=== PATIENT | male | born 1965 | race Caucasian/White ===

== ENCOUNTER → 2017-06-11 | Outpatient (CLI) | payer BC ==
--- NOTE | 2017-06-11 12:36 | REP ---
Right lower extremity Duplex Doppler venous ultrasound: Real time compression and duplex Doppler interrogation of the right lower extremity deep venous system is performed. The right common femoral, superficial femoral and popliteal veins are fully compressible with transducer pressure and demonstrate normal spontaneous and phasic flow, without evidence of deep venous thrombosis. Impression: No evidence of deep venous thrombosis of the right lower extremity femoral popliteal venous system. Signed by Chay Velez MD 06/11/2017 12:06 P
== END ==
LOC: M RAD 11:11
PROVIDERS: ATTEND Physician Assistant
DX: M79.604 Pain in right leg (principal)

== ENCOUNTER → 2017-06-11 | Outpatient (CLI) | payer BC ==
[2017-06-11 13:09] LABS: BASO # 0.1 10^3/uL (0.0-0.2); BASO % 0.4 % (0.0-1.0); EOS # 0.4 10^3/uL (0.0-0.50); EOS % 2.1 % (0.0-3.0); IMMATURE GRANULOCYTE % 0.4 % (0-0); LYMPH # 1.5 10^3/uL (1.5-4.5); LYMPH % 9.2 % (24.0-44.0); MEAN CORPUSCULAR HEMOGLOBIN 31.3 pg (27.0-33.0); MEAN CORPUSCULAR HGB CONC 33.7 g/dl (32.0-36.5); MEAN CORPUSCULAR VOLUME 92.9 fl (80.0-96.0); MONO # 1.2 10^3/uL (0.0-0.8); MONO % 7.3 % (0.0-5.0); NEUTROPHILS # 13.4 10^3/uL (1.8-7.7); NEUTROPHILS % 80.6 % (36.0-66.0); PLATELET COUNT, AUTOMATED 319 10^3/uL (150-450); RED CELL DISTRIBUTION WIDTH 13.2 % (11.5-14.5); WHITE BLOOD COUNT 16.6 10^3/uL (4.0-10.0)
== END ==
LOC: M WUC 09:13
PROVIDERS: ATTEND Physician Assistant
DX: L02.415 Cutaneous abscess of right lower limb (principal)

== ENCOUNTER → 2017-06-15 | Outpatient (CLI) | payer BC ==
[2017-06-15 19:04] LABS: BASO # 0.1 10^3/uL (0.0-0.2); BASO % 0.6 % (0.0-1.0); EOS # 0.2 10^3/uL (0.0-0.50); EOS % 2.4 % (0.0-3.0); IMMATURE GRANULOCYTE % 0.2 % (0-0); LYMPH % 22.5 % (24.0-44.0); MEAN CORPUSCULAR HEMOGLOBIN 31.3 pg (27.0-33.0); MEAN CORPUSCULAR HGB CONC 33.8 g/dl (32.0-36.5); MEAN CORPUSCULAR VOLUME 92.6 fl (80.0-96.0); MONO # 0.8 10^3/uL (0.0-0.8); MONO % 8.6 % (0.0-5.0); NEUTROPHILS # 5.9 10^3/uL (1.8-7.7); NEUTROPHILS % 65.7 % (36.0-66.0); PLATELET COUNT, AUTOMATED 329 10^3/uL (150-450); RED CELL DISTRIBUTION WIDTH 12.9 % (11.5-14.5); WHITE BLOOD COUNT 8.9 10^3/uL (4.0-10.0)
== END ==
LOC: M WUC 17:11
PROVIDERS: ATTEND Physician Assistant
DX: L02.415 Cutaneous abscess of right lower limb (principal)

== ENCOUNTER → 2017-09-01 | Outpatient (REF) | payer BC ==
[2017-09-01 13:43] LABS: BASO % 0.4 % (0.0-1.0); EOS # 0.1 10^3/uL (0.0-0.50); EOS % 1.8 % (0.0-3.0); HEMATOCRIT 44.2 % (42.0-52.0); HEMOGLOBIN 14.8 g/dl (14.0-18.0); IMMATURE GRANULOCYTE % 0.3 % (0-0); LYMPH # 1.6 10^3/uL (1.5-4.5); LYMPH % 20.9 % (24.0-44.0); MEAN CORPUSCULAR HGB CONC 33.5 g/dl (32.0-36.5); MEAN CORPUSCULAR VOLUME 92.7 fl (80.0-96.0); MONO # 0.6 10^3/uL (0.0-0.8); MONO % 8.2 % (0.0-5.0); NEUTROPHILS # 5.3 10^3/uL (1.8-7.7); NEUTROPHILS % 68.4 % (36.0-66.0); PLATELET COUNT, AUTOMATED 254 10^3/uL (150-450); RED BLOOD COUNT 4.77 10^6/uL (4.30-6.10); RED CELL DISTRIBUTION WIDTH 13.2 % (11.5-14.5); WHITE BLOOD COUNT 7.8 10^3/uL (4.0-10.0)
[2017-09-01 13:51] LABS: ALBUMIN 3.9 GM/DL (3.2-5.2); ALBUMIN/GLOBULIN RATIO 1.05 (1.00-1.93); ALKALINE PHOSPHATASE 86 U/L (45-117); ALT/SGPT 45 U/L (12-78); ANION GAP 4 MEQ/L (8-16); AST/SGOT 36 U/L (7-37); BILIRUBIN,TOTAL 0.3 MG/DL (0.2-1.0); BLOOD UREA NITROGEN 13 MG/DL (7-18); CALCIUM LEVEL 8.8 MG/DL (8.5-10.1); CARBON DIOXIDE LEVEL 30 MEQ/L (21-32); CHLORIDE LEVEL 104 MEQ/L (98-107); CHOLESTEROL LEVEL 120 MG/DL (<200); CHOLESTEROL RISK RATIO 4.615 (<5); CREATININE FOR GFR 0.78 MG/DL (0.70-1.30); GLOMERULAR FILTRATION RATE > 60.0 (>56); GLUCOSE, FASTING 110 MG/DL (70-100); HDL CHOLESTEROL 26 MG/DL (>40); LDL CHOLESTEROL 83.4 MG/DL (<100); MAGNESIUM LEVEL 1.7 MG/DL (1.8-2.4); NON-HDL-C 94 MG/DL; POTASSIUM SERUM 3.7 MEQ/L (3.5-5.1); SODIUM LEVEL 138 MEQ/L (136-145); TOTAL PROTEIN 7.6 GM/DL (6.4-8.2); TRIGLYCERIDES LEVEL 53 MG/DL (<150)
== END ==
LOC: M LABDRAW1 11:01
DX: K21.9 Gastro-esophageal reflux disease without esophagitis (principal)
CPT/HCPCS: 83735

== ENCOUNTER → 2018-03-04 | Outpatient (REF) | payer BC | LOC: M WUC 09:26 | DX: L02.414 Cutaneous abscess of left upper limb (principal) | CPT/HCPCS: 87186 ==

== ENCOUNTER 2018-04-07 11:11 | Day surgery (SDC) | payer BC ==
[~2018-04-07 11:11] MED LIST: LIDOCAINE 2% INJ 100 MG/5 ML SDV (FOR ANES.) As Ordered; PROPOFOL 200 MG/20 ML VIAL As Ordered; fentaNYL 100 MCG/2 ML INJECTION (J3010) As Ordered
[2018-04-07] MEDS ORDERED: NS 1,000 ML IV (11:30)
[2018-04-07] MEDS ORDERED: PROPOFOL 200 MG/20 ML VIAL As Ordered (12:30)
== END 2018-04-07 13:05 | disposition home or self-care (01) ==
LOC: M OPP 11:11
DX: Z12.11 Encounter for screening for malignant neoplasm of colon (principal); Z80.0 Family history of malignant neoplasm of digestive organs; Z86.010 Personal history of colon polyps; K64.0 First degree hemorrhoids; K57.30 Diverticulosis of large intestine without perforation or abscess without bleeding; K90.0 Celiac disease; K57.32 Diverticulitis of large intestine without perforation or abscess without bleeding; Z86.718 Personal history of other venous thrombosis and embolism; Z86.14 Personal history of Methicillin resistant Staphylococcus aureus infection; M54.89 Other dorsalgia; G47.30 Sleep apnea, unspecified; R06.83 Snoring; F17.210 Nicotine dependence, cigarettes, uncomplicated; Z79.899 Other long term (current) drug therapy
CPT/HCPCS: G0105

== ENCOUNTER 2020-02-15 09:48 | Inpatient (IN) | payer BC ==
[~2020-02-15] VITALS: Ht 172.7 cm; Wt 71.4 kg
[~2020-02-15 09:48] MED LIST changes: +CIAL5TAB PO; +CLAR10CA3 PO; +GABA600T4 PO; +IBUP1TAB7 PO; -LIDOCAINE 2% INJ 100 MG/5 ML SDV (FOR ANES.) As Ordered; +MULTCAP PO; -PROPOFOL 200 MG/20 ML VIAL As Ordered; +TRAM50TA2 PO; -fentaNYL 100 MCG/2 ML INJECTION (J3010) As Ordered
[2020-02-15] MEDS ORDERED: NS 1,000 ML IV ONE ×2 (11:15→13:15)
[2020-02-15] MEDS ORDERED: KETOROLAC 30 MG/ML 1ML VIAL IV ONE (11:15)
--- NOTE | 2020-02-15 11:22 | REP ---
Clinical: Right groin pain. Technique: Real time street scale examination using linear high frequency transducer. Findings: Bilateral fat containing inguinal hernias are identified which are not reducible with transducer pressure. Right inguinal hernia defect measures up to 2.6 cm diameter on Valsalva and lateral to the external inguinal ring is a 2.5 x 1.8 x 2.0 cm well circumscribed cystic structure of uncertain etiology or significance. Left inguinal hernia defect measures 2.1 cm diameter on Valsalva. Impression: Small to moderate bilateral fat containing inguinal hernias. 2.5 cm cystic lesion lateral to the right inguinal canal at the groin. Electronically Signed by Jonathan Dixon MD 02/15/2020 11:14 A
[2020-02-15 11:29] LABS: BASO % 0.2 % (0.0-1.0); EOS % 0.2 % (0.0-3.0); HEMATOCRIT 41.6 % (42.0-52.0); HEMOGLOBIN 14.1 g/dl (13.5-17.5); LYMPH # 1.6 10^3/uL (1.5-5.0); LYMPH % 9.8 % (24.0-44.0); MEAN CORPUSCULAR HEMOGLOBIN 31.7 pg (27.0-33.0); MEAN CORPUSCULAR HGB CONC 33.9 g/dl (32.0-36.5); MEAN CORPUSCULAR VOLUME 93.5 fl (80.0-96.0); MONO # 1.3 10^3/uL (0.0-0.8); MONO % 7.8 % (0.0-5.0); NEUTROPHILS # 13.3 10^3/uL (1.5-8.5); NEUTROPHILS % 81.6 % (36.0-66.0); PLATELET COUNT, AUTOMATED 268 10^3/uL (150-450); RED BLOOD COUNT 4.45 10^6/uL (4.30-6.10); WHITE BLOOD COUNT 16.3 10^3/uL (4.0-10.0)
[2020-02-15] MEDS ORDERED: ISOVUE-370 76% 100ML VIAL As Ordered ONE (11:31)
[2020-02-15 12:02] LABS: ALBUMIN 3.2 GM/DL (3.2-5.2); BILIRUBIN,DIRECT 0.2 MG/DL (0.0-0.2); BILIRUBIN,TOTAL 0.5 MG/DL (0.2-1.0); TOTAL PROTEIN 7.2 GM/DL (6.4-8.2)
[2020-02-15] MEDS ORDERED: AMPICILLIN SOD/SULBACTAM SOD 3 GM in D5W MINI-BAG PLUS 100 ML IV ONE (12:15)
[2020-02-15] MEDS ORDERED: metroNIDAZOLE 500 MG in IV 1 EA IV ONE (12:15)
[2020-02-15] MEDS ORDERED: CIPROFLOXACIN 400 MG in IV 1 EA IV ONE (12:15)
[2020-02-15] MEDS ORDERED: LEVO500T3 PO (12:16)
[2020-02-15] MEDS ORDERED: TADA2.5T PO (12:16)
[2020-02-15] MEDS ORDERED: LORA-674 PO (12:16)
[2020-02-15] MEDS ORDERED: CYCL5TAB PO (12:16)
[2020-02-15] MEDS ORDERED: MULT-90 PO (12:17)
--- NOTE | 2020-02-15 12:20 | REP ---
CT ABDOMEN AND PELVIS WITH IV BUT WITHOUT ORAL CONTRAST: HISTORY: Right lower quadrant pain greater than left, nausea, fever and chills. No comparison CT study. CT CONTRAST DOSE: 100 mL of intravenous Isovue [address] FINDINGS: Preliminary digital internet manager radiographs are unremarkable. Normal bowel gas pattern. The lung bases show minimal linear fibrosis but are otherwise clear. Liver is normal in size homogeneous in texture. The spleen is unremarkable and homogeneous as well. Normal adrenal glands are present. There is no abnormality in the pancreas or the gallbladder by CT. The kidneys enhance symmetrically and are morphologically intact. There is mild vascular calcification. Normal caliber aorta. Small and large intestinal bowel loops are unremarkable in the upper abdomen. Pelvic CT images demonstrate diverticulosis of the sigmoid colon with an area of mural thickening and intramural abscess formation consistent with acute diverticulitis. Intramural central pelvic abscess measures 3.7 x 2.3 cm. This is not accessible to percutaneous aspiration. There is a small quantity of fluid in the right lower quadrant. There is a right inguinal hernia transmitting abdominal fat and a small quantity of fluid. There is some fat along the inguinal canal and spermatic cord on the left as well but no definite defect is seen. Urinary bladder is unremarkable. No free air is seen. IMPRESSION: 1. Findings consistent with acute diverticulitis affecting the sigmoid colon with a intramural abscess associated with the sigmoid colon diverticulitis 3.7 x 2.3 cm in diameter in the central pelvis. This is not amendable to percutaneous aspiration. No free air is seen. 2. Right inguinal hernia transmitting a small quantity of fluid and abdominal fat. This is lateral to the spermatic cord. Electronically Signed by Tadeo Walters MD 02/15/2020 12:51 P
[2020-02-15] MEDS ORDERED: ACETAMINOPHEN TAB 650MG DOSE (2X325MG) PO PRN (13:15)
--- NOTE | 2020-02-15 13:25 | HPEPDOC ---
General Date of Admission 02/15/20 Date of Service: Feb 15, 2020 Chief Complaint The patient is a 54-year-old male admitted with a reason for visit of Hernia. Source: Patient Exam Limitations: No limitations Timing/Duration: Day(s) Severity: Moderate Associated Symptoms: Fever, Chills History of Present Illness Patient's 54 years old male with past medical history of chronic diverticulitis, celiac diseases presented to the hospital with lower abdominal pain. Patient stated that for past 7 days he has been having left lower quadrant and right lower quadrant pain associated with tenesmus and chills. Of note patient has a history of chronic diverticulitis, last exacerbation was around 7 years ago. In ER patient was found to have elevated white blood count of 16. CT scan was done and showed Findings consistent with acute diverticulitis affecting the sigmoid colon with a intramural abscess associated with the sigmoid colon diverticulitis 3.7 x 2.3 cm in diameter in the central pelvis. Surgeon Dr Morillo recommended antibiotics for now. Home Medications Scheduled Cyclobenzaprine HCl (Cyclobenzaprine HCl) 5 Mg Tablet, 5 MG PO DAILY, (Reported) Gabapentin (Gabapentin) 600 Mg Tab, 600 MG PO TID, (Reported) Ibuprofen (Ibuprofen) 800 Mg Tab, 800 MG PO DAILY, (Reported) Levofloxacin (Levofloxacin) 500 Mg Tablet, 500 MG PO DAILY, (Reported) for 10 days, started 02/10 Loratadine (Loratadine) 10 Mg Tablet, 10 MG PO DAILY, (Reported) Multivitamin (Multivitamin) 1 Each Tablet, 1 EACH PO DAILY, (Reported) Tadalafil (Tadalafil) 2.5 Mg Tablet, 2.5 MG PO DAILY, (Reported) Allergies Coded Allergies: No Known Allergies (Unverified , 02/15/20) Past Medical History Medical History chronic diverticulitis, celiac diseases Family History Father -colon cancer Social History * Smoker: current smoker Alcohol: Denies Drugs: marijuana A-FIB/CHADSVASC A-FIB History Current/History of A-Fib/PAF?: No Current PO Anticoag Therapy: No Review of Systems Constitutional: Reports: Chills, Fever Eyes: Denies: Pain ENT: Denies: Head Aches Skin: Denies: Rash, Lesions Pulmonary: Denies: Dyspnea, Cough Cardiovascular: Denies: Chest Pain, Palpitations Gastrointestinal: Reports: Nausea, Abdominal Pain Genitourinary: Denies: Dysuria Hematologic: Denies: Bruising Endocrine: Denies: Polydipsia, Polyphagia Musculoskeletal: Denies: Neck Pain Neurological: Denies: Weakness Psych: Reports: Mood Normal Physical Examination General Exam: Positive: Alert, Cooperative Eye Exam: Positive: PERRLA ENT Exam: Positive: Atraumatic Neck Exam: Positive: Supple; Negative: JVD Chest Exam: Positive: Clear to auscultation Heart Exam: Positive: Rate Normal Telemetry: Positive: No significant arrhythmia Abdomen Exam: Positive: Tenderness (RLQ and LLQ) Extremity Exam: Negative: Clubbing, Cyanosis Skin Exam: Positive: Nl turgor and temperature Neuro Exam: Positive: Normal Gait, Strength at 5/5 X4 ext, Cranial Nerves 3-12 NL Psych Exam: Positive: Mental status NL Vital Signs Vital Signs Date Time Temp Pulse Resp B/P (MAP) Pulse Ox O2 Delivery O2 Flow Rate FiO2 02/15/20 11:07 98.6 02/15/20 10:13 02/15/20 09:49 89 16 97 Room Air Laboratory Data Labs 24H Laboratory Tests 2 02/15/20 11:14: Immature Granulocyte % (Auto) 0.4, Neutrophils (%) (Auto) 81.6H, Lymphocytes (%) (Auto) 9.8L, Monocytes (%) (Auto) 7.8H, Eosinophils (%) (Auto) 0.2, Basophils (%) (Auto) 0.2, Neutrophils # (Auto) 13.3H, Lymphocytes # (Auto) 1.6, Monocytes # (Auto) 1.3H, Eosinophils # (Auto) 0.0, Basophils # (Auto) 0.0, Nucleated Red Blood Cells % (auto) 0.0, Total Bilirubin 0.5, Direct Bilirubin 0.2, Aspartate Amino Transf (AST/SGOT) 37, Alanine Aminotransferase (ALT/SGPT) 40, Alkaline Phosphatase 74, Total Protein 7.2, Albumin 3.2, Albumin/Globulin Ratio 0.8, Lipase 60L 02/15/20 11:19: POC Glucose (Misc Panel) 101, POC Sodium (Misc Panel) 142, POC Potassium (Misc Panel) 3.7, POC Chloride (Misc Panel) 100, POC Total CO2 (Misc Panel) 30.0H, POC Blood Urea Nitrogen (Misc Panel 8, POC Ionized Calcium (Misc Panel) 4.6, POC Creatinine (Misc Panel) 0.6, POC Hematocrit (Misc Panel) 44.0 CBC/BMP Laboratory Tests 02/15/20 11:14 Assessment/Plan Patient's 54 years old male with past medical history of chronic diverticulitis, celiac diseases presented to the hospital with lower abdominal pain. Patient stated that for past 7 days he has been having left lower quadrant and right lower quadrant pain associated with tenesmus and chills. Of note patient has a history of chronic diverticulitis, last exacerbation was around 7 years ago. In ER patient was found to have elevated white blood count of 16. CT scan was done and showed Findings consistent with acute diverticulitis affecting the sigmoid colon with a intramural abscess associated with the sigmoid colon diverticulitis 3.7 x 2.3 cm in diameter in the central pelvis. Surgeon Dr Morillo recommended antibiotics for now. Problems (1) Diverticulitis of sigmoid colon Status: Acute Problem Text: CT showed acute diverticulitis with abscess IV fluid Blood culture Zosyn IV Appreciate/agree with surgical consult Pain management Plan / VTE VTE Prophylaxis Ordered?: Yes DIEGO BUSTAMANTE DO Feb 15, 2020 13:24
[2020-02-15] MEDS: NS 1,000 ML IV SCH ×2 (14:44→19:59)
[2020-02-15] MEDS: CYCLOBENZAPRINE 5MG TABLET PO SCH (14:51)
[2020-02-15] MEDS: LORATADINE 10 MG TAB PO SCH (14:51)
[2020-02-15 15:25] VITALS: BP 122/73
[2020-02-15] MEDS: GABAPENTIN 300 MG CAP PO SCH ×2 (17:01→19:59)
[2020-02-15] MEDS: PIPERACILLIN/TAZOBACTAM SOD 3.375 GM in D5W MINI-BAG PLUS 50 ML IV SCH (17:01)
[2020-02-15] MEDS: OMEPRAZOLE 20 MG CAP PO SCH (20:57)
[2020-02-15 22:00] VITALS: BP 101/63
[2020-02-16] MEDS: traMADol 50 MG TAB PO PRN ×2 (00:01→06:05)
[2020-02-16] MEDS: PIPERACILLIN/TAZOBACTAM SOD 3.375 GM in D5W MINI-BAG PLUS 50 ML IV SCH ×3 (05:05)
[2020-02-16] MEDS: NS 1,000 ML IV SCH (05:06)
[2020-02-16 06:00] VITALS: BP 127/68
[2020-02-16 06:20] LABS: HEMATOCRIT 38.4 % (42.0-52.0); MEAN CORPUSCULAR HEMOGLOBIN 31.8 pg (27.0-33.0); MEAN CORPUSCULAR HGB CONC 33.9 g/dl (32.0-36.5); MEAN CORPUSCULAR VOLUME 93.9 fl (80.0-96.0); PLATELET COUNT, AUTOMATED 249 10^3/uL (150-450); RED BLOOD COUNT 4.09 10^6/uL (4.30-6.10); WHITE BLOOD COUNT 17.5 10^3/uL (4.0-10.0)
[2020-02-16 06:39] LABS: BLOOD UREA NITROGEN 5 MG/DL (7-18); CALCIUM LEVEL 8.5 MG/DL (8.5-10.1); CARBON DIOXIDE LEVEL 27 MEQ/L (21-32); CHLORIDE LEVEL 109 MEQ/L (98-107); CREATININE FOR GFR 0.67 MG/DL (0.70-1.30); GLOMERULAR FILTRATION RATE > 60.0 (>56); GLUCOSE, FASTING 94 MG/DL (70-100); MAGNESIUM LEVEL 1.6 MG/DL (1.8-2.4); POTASSIUM SERUM 3.2 MEQ/L (3.5-5.1); SODIUM LEVEL 139 MEQ/L (136-145)
[2020-02-16] MEDS ORDERED: CIPROFLOXACIN 400 MG in IV 1 EA IV SCH (09:00)
[2020-02-16] MEDS ORDERED: MAG SULF 1GM/100ML (MAG RUN) 1 GM in IV 1 EA IV ONE (09:00)
[2020-02-16] MEDS ORDERED: POTASSIUM CHLORIDE 10 MEQ SR TABLET PO ONE (09:00)
[2020-02-16] MEDS ORDERED: ENOXAPARIN 40MG/0.4ML SYRINGE (J1650 PER 10MG) SC SCH (09:00)
[2020-02-16] MEDS ORDERED: metroNIDAZOLE 500 MG in IV 1 EA IV SCH (10:00)
[2020-02-16] MEDS: LORATADINE 10 MG TAB PO SCH (10:26)
[2020-02-16] MEDS: OMEPRAZOLE 20 MG CAP PO SCH (10:27)
[2020-02-16] MEDS: CYCLOBENZAPRINE 5MG TABLET PO SCH (10:27)
[2020-02-16] MEDS: GABAPENTIN 300 MG CAP PO SCH (10:27)
--- NOTE | 2020-02-16 10:37 | CR ---
DATE OF CONSULTATION: 02/16/2020 CHIEF COMPLAINT: Abdominal pain. HISTORY OF PRESENT ILLNESS: The patient is a 54-year-old male who was admitted to the hospital with pelvic pain. He has had this pelvic pain going on since just over a week. His symptoms started at work. On last Thursday, he brought himself to the Urgent Care to be evaluated. They checked a urinalysis (UA) and said it was slightly abnormal and started him on some Levaquin. Over the next couple of days, his pain was the same, not getting any better. He was having mucousy stools. No blood in his stool. No nausea or vomiting. No fevers or chills. He came back in on Thursday, was reevaluated and told he had a hernia. Then, yesterday, he presented back to the emergency room again due to the persistent pains and was found have an elevated white count of 16. CT was done yesterday which showed that he has some sigmoid diverticulitis with an intramural abscess as well as bilateral inguinal hernias. Because of the elevated white count, he was admitted to the hospitalist service and started on IV antibiotics, a clear liquid diet and I was asked to evaluate. This morning, he does not feel any improvement as far as his pain goes. The pain is all in the pelvis. There is no palpable abdominal pain whatsoever. He denies fevers or chills. No nausea or vomiting. No problems tolerating a liquid diet. The only complaint other than the pain is that his stools have been mucousy. He did have a colonoscopy a couple of years ago with Dr. Castro that just showed diverticulosis. No other abnormalities at that time. He has not had any recent travel or trauma. No other complications. PAST MEDICAL HISTORY: Chronic diverticulosis. Celiac disease. PAST SURGICAL HISTORY: None. SOCIAL HISTORY: Smokes pack a day. Denies drug or alcohol abuse. FAMILY HISTORY: Noncontributory. ALLERGIES: None. HOME MEDICATIONS: Please see med record. REVIEW OF SYSTEMS: Pertinent positives and negatives as stated in the history of present illness (HPI). PHYSICAL EXAMINATION: General: Alert and oriented x3 in no acute distress. Vitals: Temperature 99.5, pulse 82, respirations 16, blood pressure 127/68, pulse oximetry 92% room air. HEENT: Pupils equally round, react to light and accommodation. Heart: S1, S2. Regular rate and rhythm. Lungs: Clear to auscultation bilaterally. Abdomen: Soft, nontender, nondistended. No visible or palpable ventral hernias. There is a reducible inguinal hernia identified on the left and a nonreducible inguinal hernia identified on the right with just slight pain to palpation. He points to all of his pain being behind the pubic symphysis, very low inside of the pelvis. I was not able to reproduce any significant pains with palpation of the abdomen. LABORATORY DATA: White count 16.3 on admission and up to 17.5 this morning, hemoglobin 13, platelets 249, potassium 3.2, creatinine 0.67, and magnesium 1.6. IMAGING STUDIES: CT of abdomen and pelvis showed a right inguinal hernia with abdominal fat and small quantity of fluid. There was also a small defect identified on the left side, acute diverticulitis in the sigmoid with intramural abscess with a sigmoid colon diverticulitis 3.7 x 2.3 cm in diameter in the central pelvis not amenable to percutaneous aspiration, no free air is seen. ASSESSMENT/PLAN: The patient is a 54-year-old male with bilateral inguinal hernias, the right one being incarcerated, also with acute sigmoid diverticulitis with intramural abscess. Recommendation at this time is bowel rest, IV fluids, antibiotics, replace electrolytes, and monitor him closely. I explained to him how I could repair both of his hernias at the same time robotically; however, I would wait and do it electively once the diverticulitis has subsided. Therefore, we do not have to worry about the risk of the mesh becoming infected. As far as the diverticulitis goes, I also explained to him the possible need for emergent surgery which would result in a colostomy if we had to do that during this hospitalization. Otherwise, will continue to treat medically and get him out of here and then if his symptoms return frequently over the next year or two he can be set up for an elective surgery if he chooses.
--- NOTE | 2020-02-16 11:37 | IPNPDOC ---
Text Note Date of Service The patient was seen on 02/16/20. NOTE Subjective: Patient continues to have lower quadrants abdominal pain, 5 out of 10 with tenesmus. Also he complains of subjective fever. No any acute events overnight. Objective: VITAL SIGNS: Please see below. GENERAL: awake, alert, NAD HEENT: NCAT, anicteric sclera, NAYE NECK: supple, no JVD CARDIOVASCULAR EXAMINATION: NS1S2, regular rate/rhythm RESPIRATORY EXAMINATION: CTA b/l, no wheezes/rales/rhonchi ABDOMINAL EXAMINATION: positive bowel sounds x 4, mild tenderness over the low lower quadrants There is a reducible inguinal hernia identified on the left and a nonreducible inguinal hernia identified on the right with just slight pain to palpation EXTREMITIES: no cyanosis, clubbing, edema SKIN: warm, no rashes. NEUROLOGICAL EXAMINATION: AAO x 3, no motor/sensory deficits PSYCHIATRIC EXAMINATION: calm, normal affect Patient's 54 years old male with past medical history of chronic diverticulitis, celiac diseases presented to the hospital with lower abdominal pain. Patient stated that for past 7 days he has been having left lower quadrant and right lower quadrant pain associated with tenesmus and chills. Of note patient has a history of chronic diverticulitis, last exacerbation was around 7 years ago. In ER patient was found to have elevated white blood count of 16. CT scan was done and showed Findings consistent with acute diverticulitis affecting the sigmoid colon with a intramural abscess associated with the sigmoid colon diverticulitis 3.7 x 2.3 cm in diameter in the central pelvis. Surgeon Dr Morillo recommended antibiotics for now. Diverticulitis of sigmoid colon Status: Acute Problem Text: CT showed acute diverticulitis with abscess IV fluid Blood culture Continue Cipro IV and Flagyl IV Pain management Surgical team recommended continued IV antibiotics Bilateral inguinal hernia Follow-up with surgical team in the outpatient settings VS,Fishbone, I+O VS, Fishbone, I+O Laboratory Tests 02/16/20 05:30 Vital Signs Date Time Temp Pulse Resp B/P (MAP) Pulse Ox O2 Delivery O2 Flow Rate FiO2 02/16/20 06:35 18 02/16/20 06:00 99.5 82 127/68 (87) 92 Room Air I&O- Last 24 Hours up to 6 AM 02/16/20 06:00 Intake Total 5205 ml Output Total 250 ml Balance 4955 ml DROZHZHIN,DIEGO DO Feb 16, 2020 11:37
[2020-03-28] MEDS ORDERED: PROBCAP14 PO (08:02)
== END 2020-02-17 12:41 | disposition home or self-care (01) | DRG 244 ==
LOC: M ED 09:48 → M ED INP 13:03 → ENRESERV 14:46 → M MSPAV 15:15
PROVIDERS: ADMIT Internal Medicine; ATTEND Internal Medicine
DX: K57.20 Diverticulitis of large intestine with perforation and abscess without bleeding (principal); K40.00 Bilateral inguinal hernia, with obstruction, without gangrene, not specified as recurrent; K90.0 Celiac disease; F17.200 Nicotine dependence, unspecified, uncomplicated; R19.8 Other specified symptoms and signs involving the digestive system and abdomen; Z79.899 Other long term (current) drug therapy

== ENCOUNTER → 2020-04-14 | Outpatient (CLI) | payer OTHER ==
[~2020-04-14] MED LIST changes: +CYCL5TAB PO; +LEVO500T3 PO; +LORA-674 PO; +MULT-90 PO; +PROBCAP14 PO; +TADA2.5T PO
== END ==
LOC: M LABSMTC 10:49
PROVIDERS: ATTEND Anesthesiology
DX: Z20.828 Contact with and (suspected) exposure to other viral communicable diseases (principal)
CPT/HCPCS: C9803; U0003

== ENCOUNTER 2020-04-19 07:22 | Day surgery (SDC) | payer OTHER ==
[~2020-04-19] VITALS: Ht 172.7 cm; Wt 68.0 kg
[~2020-04-19 07:22] MED LIST changes: +LIDOCAINE 2% 100MG/5ML SDV (FOR ANES.) As Ordered ONE; +LR 1,000 ML IV ONE; +MIDAZOLAM INJ 2MG/2ML VIAL (J2250 PER 1MG) As Ordered ONE; +ONDANSETRON 4MG/2ML VIAL As Ordered ONE; +PHENYLephrine HCL 500 MCG/5 ML (100MCG/ML) SYRINGE (J2370) As Ordered ONE; +ROCURONIUM BROMIDE 50 MG/5 ML VIAL As Ordered ONE; +SEVOFLURANE INHAL SOLN 250 ML BTL As Ordered ONE; +ceFAZolin SOD 2 GM in IV 1 EA IV ONE; +dexameTHASONE 4 MG/ML 1ML VIAL (J1100 PER 1MG) As Ordered ONE; +fentaNYL 100 MCG/2 ML INJECTION (J3010) As Ordered ONE; +propofoL 200 MG/20 ML VIAL As Ordered ONE
[2020-04-19] MEDS ORDERED: LIDOCAINE 1% SDV 30ML VIAL As Ordered ONE (07:31)
[2020-04-19] MEDS ORDERED: BUPIVACAINE HCL 0.25% 30ML VIAL As Ordered ONE (07:31)
[2020-04-19] MEDS ORDERED: ceFAZolin 2 GM/D5W 50 ML IV BAG (J0690 PER 500MG) As Ordered ONE (08:32)
[2020-04-19] MEDS ORDERED: ROCURONIUM BROMIDE 50 MG/5 ML VIAL As Ordered ONE (09:30)
[2020-04-19] MEDS ORDERED: HYDROmorphone HCL 2 MG/ML 1ML VIAL (J1170) As Ordered ONE (09:35)
[2020-04-19] MEDS ORDERED: SUGAMMADEX SODIUM 500 MG/5 ML VIAL (BRIDION) As Ordered ONE (11:07)
[2020-04-19] MEDS: oxyCODONE 5MG TAB PO PRN ×2 (11:57→12:45)
[2020-04-19] MEDS ORDERED: oxyCODONE 5MG TAB As Ordered ONE (11:59)
[2020-04-19] MEDS ORDERED: KETOROLAC 30 MG/ML 1ML VIAL IV PRN (12:15)
[2020-04-19] MEDS ORDERED: fentaNYL 100 MCG/2 ML INJECTION (J3010) IV PRN (12:15)
[2020-04-19] MEDS ORDERED: ONDANSETRON 4MG/2ML VIAL IV PRN ×2 (12:15)
[2020-04-19] MEDS ORDERED: PERCOCET 5MG/325MG TAB PO PRN (12:15)
[2020-04-19] MEDS ORDERED: LR 1,000 ML IV SCH (12:15)
[2020-04-19 13:32] VITALS: BP 125/78
--- NOTE | 2020-06-13 01:36 | ROOPDOC ---
[facility] Report Of Operation Report of Operation DATE OF PROCEDURE: 04/19/20 PREPROCEDURE DIAGNOSES: Bilateral inguinal hernia. POSTPROCEDURE DIAGNOSES: Bilateral inguinal hernia, right femoral hernia. PROCEDURE: Robotic-assisted laparoscopic repair of bilateral inguinal hernia and right femoral hernia (rTAPP). SURGEON: Unruly Cabrera MD SENIOR SALES DIRECTOR: Tran Parish NP Ms. Parish assisted with placement of ports, docking of the robot, management of the instruments and robotic arms on the field while I was at the surgeon's console, introduction of mesh and closure of incision ANESTHESIA: General Anesthesia. ESTIMATED BLOOD LOSS: Approximately 20 mL. COMPLICATIONS: none. REMARKS: large right inguinal hernia, cord lipoma containing left inguinal hernia, small right femoral hernia. bilateral 15x10 cm parietex Progrip mesh placed without fixation DESCRIPTION OF PROCEDURE: Patient received 2 g of Ancef IV preoperatively for wound prophylaxis. Patient was brought to the operating room, placed supine on the operating table. Compression boots placed in both lower extremities for DVT prophylaxis. After adequate general anesthesia started, he was positioned on the table with both arms tucked. A michelle catheter placed without difficulty. His abdomen and groin/pelvic area then prepped and draped in the usual sterile fashion. We paused for a surgical timeout using both pre-incision safety checklist to verify correct patient, procedure site and additional clinical information prior to beginning the procedure Entry to the abdomen done through a small incision about 4 cms above the umbilical skin cleft. A Veress needle is inserted on a controlled fashion. CO2 insufflation started to pressure 15 mmHg. Using the same incision a 8 mm robotic troccar then placed under direct vision of laparoscope. The insertion site was inspected for injury and none was found. Patient was then positioned on a mild Trendelenburg position. Two working ports placed to the right and left of the camera trocar along the same line 10 -12 cms apart. The da Blank robot tower was then positioned in place and the trocars docked to the robotic arms. I then unscrubbed and took control of the camera and the laparoscopic instruments at the surgeon's console. A Forced bipolar forceps with bipolar cautery and A laparoscopic scissor with unipolar cautery was used. Operative Findings: On diagnostic laparoscopy, presence of a moderate-sized opening at the right indirect hernia spaces noted which was empty at the time of the surgery. This is extending towards the scrotum. A smaller defects noted over on the left side with CONSISTENT with most likely is cord lipoma within the canal7 I stated on the larger right side hernia. The peritoneum was opened up about 5 cms above the superior edge of the fascial defect of the inguinal hernia starting at the medial umbilical ligament (divided) going in an arc-like fashion laterally towards the level of the anterior superior iliac spine. This was then dissected mostly bluntly away from the abdominal wall. Both the lateral side and medial side were bluntly opened up. Medially this was extended to past the symphisis pubis and 2 cms inferior to the pubic tubercle . A small fat- containing inguinal hernia was noted. The fat within the canal was reduced into the preperitoneum and dissection was extended inferiorly to the femoral space. Laterally this was extended in the same plane and along the same depth as the space of Bogros. On approaching the inguinal hernia defect the hernia sac was completely dissected off the testicular structures with concommitant reduction of a bulky cord lipoma. The testicular vessels and vas deferens remained largely in placed with their investing fascia mostly intact with minimal manipulation of the cord structures. He has a large and redundant inguinal hernia sac which was fully reduced back into the abdomen. Both these structures were promptly identified and from the hernia sac. A After freeing up the hernia sac, the bridging fibrous structures off the medial space of retzius and lateral space of bogros were connected with parietalization of the vas deferens. I tested the flap to make sure there is adequate space for placement of mesh without lifting or clam shelling of the mesh. After fully dissecting the preperitoneal space, we checked for adequate hemostasis. I chose a 15x10 cms Parietex Pro Design Drafter Chief self fixating mesh. This was folded with the center of the mesh marked for positioning. This was then delivered intra- abdominally through one of the trochars. In a controlled fashion this was positioned into the preperitoneal space with the medial side towards the pubic tubercle past the symphisis pubis and the previously marked center of the mesh abutting the inferior epigastric vessels as it approaches the internal ring. The mesh was then carefully unfolded and positioned in place with adequate overlap around the internal ring to cover the hernia defects including that of the identified small right femoral hernia. This was carefully pressed onto the abdominal wall and made sure that it was flattened up. No added fixations were used. I again tested closing the flap making sure that the mesh remains intact without movement or clam shelling. The peritoneal flap was then closed with a running suture of 30V LOC starting laterally going medially with tacking of the extra hernia sac towards the umbilical ligament. In a similar manner the left inguinal hernia was approached and the peritoneal flap created connecting the medial dissection point and leaving only a small bridge of the medial umbilical ligament intact. Again a bulky cord lipoma was found and reduced out of the canal and into the peritoneum. I decided to divide the cord lipoma to make sure this would not return back into the canal and not to put any tension to the placement of the mesh. Again I chose a 15 x 10 cm Pro plumber's assistant mesh was placed in the same manner and with overlapping medially to the previous mesh on the other side. The flap was likewise closed. I then surveyed the abdomen and pelvis for any signs of injury. Once satisfied I scrubbed back in. The instruments were removed. The abdomen was deflated. All ports were removed. The skin incisions were closed with 4-0 Monocryl in subcuticular fashion. The incisions were covered with Dermabond. The port sites were again infiltrated with local anesthesia. An ilioinguinal nerve block was also performed. Patient was promptly awakened, extubated and brought to the recovery room stable Count of sponges and instruments were verified correct. UNRULY CABRERA MD Jun 13, 2020 01:36
== END 2020-04-19 13:50 | disposition home or self-care (01) ==
LOC: M SDC 07:22
PROVIDERS: ATTEND Surgery
DX: K40.00 Bilateral inguinal hernia, with obstruction, without gangrene, not specified as recurrent (principal); K41.90 Unilateral femoral hernia, without obstruction or gangrene, not specified as recurrent; G47.33 Obstructive sleep apnea (adult) (pediatric); K90.0 Celiac disease; K57.32 Diverticulitis of large intestine without perforation or abscess without bleeding; M12.9 Arthropathy, unspecified; G62.9 Polyneuropathy, unspecified; F17.210 Nicotine dependence, cigarettes, uncomplicated; F12.90 Cannabis use, unspecified, uncomplicated; Z79.899 Other long term (current) drug therapy; Z86.718 Personal history of other venous thrombosis and embolism; Z86.14 Personal history of Methicillin resistant Staphylococcus aureus infection
CPT/HCPCS: 49650; 88304; C1781; J0690; J1100; J1170; J2250; J2370; J2405; J3010; S2900

== ENCOUNTER → 2020-06-01 | Outpatient (CLI) | payer OTHER ==
[~2020-06-01] MED LIST changes: -LIDOCAINE 2% 100MG/5ML SDV (FOR ANES.) As Ordered ONE; -LR 1,000 ML IV ONE; -MIDAZOLAM INJ 2MG/2ML VIAL (J2250 PER 1MG) As Ordered ONE; -ONDANSETRON 4MG/2ML VIAL As Ordered ONE; -PHENYLephrine HCL 500 MCG/5 ML (100MCG/ML) SYRINGE (J2370) As Ordered ONE; -ROCURONIUM BROMIDE 50 MG/5 ML VIAL As Ordered ONE; -SEVOFLURANE INHAL SOLN 250 ML BTL As Ordered ONE; -ceFAZolin SOD 2 GM in IV 1 EA IV ONE; -dexameTHASONE 4 MG/ML 1ML VIAL (J1100 PER 1MG) As Ordered ONE; -fentaNYL 100 MCG/2 ML INJECTION (J3010) As Ordered ONE; -propofoL 200 MG/20 ML VIAL As Ordered ONE
--- NOTE | 2020-06-01 13:57 | REP ---
INDICATION: RLQ PAIN, LOCALIZED SWELL, MASS, LUMP TRUNK, BI-ING HERNIA. Patient is status post bilateral inguinal hernia repair. Palpable lump right groin. Increased pain. COMPARISON: Comparison is made with abdomen and pelvis CT imaging from February 15, 2020.. TECHNIQUE: Transabdominal and transvaginal scanning were performed. FINDINGS: Scanning through the right groin region of the palpable lump demonstrates a cystic area measuring 3.1 x 2.1 x 2.5 cm. Adjacent to this there is a normal-appearing lymph node measuring 2.5 x 0.9 by 0.9 cm. These findings are both lateral to the inguinal canal. No hernia is visible. IMPRESSION: Small septated cystic area 3.1 x 2.1 x 2.5 cm located at site of the palpable lump. Consistent with resolving hematoma seroma. There is a nearby normal appearing lymph node. No hernia is seen.. <Electronically signed by Donnie Walters > 06/01/20 [id number]
== END ==
LOC: M RAD 10:32
PROVIDERS: ATTEND Nurse Practitioner
DX: R10.31 Right lower quadrant pain (principal); R22.2 Localized swelling, mass and lump, trunk; K40.20 Bilateral inguinal hernia, without obstruction or gangrene, not specified as recurrent

== ENCOUNTER → 2020-10-25 | Outpatient (CLI) | payer OTHER ==
[2020-10-25 18:11] LABS: ALBUMIN 3.7 GM/DL (3.2-5.2); ALT/SGPT 39 U/L (12-78); BILIRUBIN,TOTAL 0.2 MG/DL (0.2-1.0); BLOOD UREA NITROGEN 13 MG/DL (7-18); CALCIUM LEVEL 8.8 MG/DL (8.5-10.1); CARBON DIOXIDE LEVEL 30 MEQ/L (21-32); CHLORIDE LEVEL 107 MEQ/L (98-107); CHOLESTEROL LEVEL 125 MG/DL (<200); CREATININE FOR GFR 0.75 MG/DL (0.70-1.30); GLOMERULAR FILTRATION RATE > 60.0 (>56); GLUCOSE, FASTING 82 MG/DL (70-100); HDL CHOLESTEROL 29 MG/DL (>40); LDL CHOLESTEROL 85 MG/DL (<100); NON-HDL-C 96 MG/DL; POTASSIUM SERUM 4.2 MEQ/L (3.5-5.1); SODIUM LEVEL 139 MEQ/L (136-145); TOTAL PROTEIN 7.4 GM/DL (6.4-8.2); TRIGLYCERIDES LEVEL 56 MG/DL (<150)
[2020-10-25 18:23] LABS: BASO % 0.5 % (0.0-1.0); EOS # 0.2 10^3/uL (0.0-0.5); EOS % 2.4 % (0.0-3.0); HEMATOCRIT 42.2 % (42.0-52.0); HEMOGLOBIN 14.2 g/dl (13.5-17.5); LYMPH # 1.8 10^3/uL (1.5-5.0); LYMPH % 22.4 % (24.0-44.0); MEAN CORPUSCULAR HEMOGLOBIN 31.6 pg (27.0-33.0); MEAN CORPUSCULAR HGB CONC 33.6 g/dl (32.0-36.5); MONO # 0.7 10^3/uL (0.0-0.8); MONO % 9.1 % (2.0-8.0); NEUTROPHILS # 5.2 10^3/uL (1.5-8.5); NEUTROPHILS % 65.3 % (36.0-66.0); PLATELET COUNT, AUTOMATED 264 10^3/uL (150-450); RED BLOOD COUNT 4.49 10^6/uL (4.30-6.10); WHITE BLOOD COUNT 7.9 10^3/uL (4.0-10.0)
== END ==
LOC: M WUC 14:39
PROVIDERS: ATTEND Physician Assistant
DX: Z00.00 Encounter for general adult medical examination without abnormal findings (principal); F17.210 Nicotine dependence, cigarettes, uncomplicated

== ENCOUNTER → 2021-03-06 | Outpatient (CLI) | payer OTHER ==
--- NOTE | 2021-03-06 08:18 | REP ---
INDICATION: NICOTINE DEPENDENCE. COMPARISON: None. TECHNIQUE: Low-dose scans were obtained without contrast administration FINDINGS: A nodule in the right upper lobe measures 4 mm and contains a small central calcification. A nodule in the left lower lobe measures 7 mm and does not contain calcifications. The lungs are otherwise clear. There is no adenopathy or pleural effusion. The adrenal glands are not enlarged. IMPRESSION: 4 mm nodule right upper lobe. 7 mm nodule left lower lobe. Lung read to benign. One year follow-up. <Electronically signed by Amari Argueta > 03/06/21 [id number]
== END ==
LOC: M RAD 07:04
PROVIDERS: ATTEND Family Medicine
DX: Z87.891 Personal history of nicotine dependence (principal)

== ENCOUNTER → 2022-02-28 | Outpatient (REF) | payer OTHER ==
[~2022-02-28] MED LIST changes: +LEVO1TAB39 PO; -LEVO500T3 PO
== END ==
LOC: M LAB REF 16:18
PROVIDERS: ATTEND Ophthalmology
DX: H02.825 Cysts of left lower eyelid (principal)

== ENCOUNTER → 2022-04-02 | Outpatient (CLI) | payer OTHER | LOC: M PAIN 13:30 | PROVIDERS: ATTEND Nurse Practitioner Family | DX: M50.10 Cervical disc disorder with radiculopathy, unspecified cervical region (principal); G47.30 Sleep apnea, unspecified; K90.0 Celiac disease; M19.90 Unspecified osteoarthritis, unspecified site; F17.210 Nicotine dependence, cigarettes, uncomplicated; G43.909 Migraine, unspecified, not intractable, without status migrainosus; G56.03 Carpal tunnel syndrome, bilateral upper limbs; Z86.718 Personal history of other venous thrombosis and embolism; Z87.81 Personal history of (healed) traumatic fracture; Z79.899 Other long term (current) drug therapy ==

== ENCOUNTER → 2022-04-15 | Outpatient (CLI) | payer OTHER | LOC: M RAD 08:04 | PROVIDERS: ATTEND Nurse Practitioner Family | DX: Z87.891 Personal history of nicotine dependence (principal) ==

== ENCOUNTER → 2022-10-10 | Outpatient (CLI) | payer OTHER ==
[2022-10-10 10:01] LABS: ALBUMIN 3.3 G/DL (3.2-5.2); ALKALINE PHOSPHATASE 95 U/L (46-116); ALT/SGPT 46 U/L (7.0-40); AST/SGOT 52 U/L (<34); BILIRUBIN,TOTAL 0.2 MG/DL (0.3-1.2); BLOOD UREA NITROGEN 12 MG/DL (9-23); CALCIUM LEVEL 8.6 MG/DL (8.5-10.1); CARBON DIOXIDE LEVEL 28 MMOL/L (20-31); CHLORIDE LEVEL 107 MMOL/L (98-107); CHOLESTEROL LEVEL 117 MG/DL (<200); CHOLESTEROL RISK RATIO 4.85 (<5); GLOMERULAR FILTRATION RATE > 60.0 (>56); GLUCOSE, FASTING 98 MG/DL (60-100); HDL CHOLESTEROL 24.1 MG/DL (>40); LDL CHOLESTEROL 65.1 MG/DL (<100); NON-HDL-C 92.9 MG/DL; POTASSIUM SERUM 4.4 MMOL/L (3.5-5.1); SODIUM LEVEL 138 MMOL/L (136-145); TOTAL PROTEIN 6.8 G/DL (5.7-8.2); TRIGLYCERIDES LEVEL 139 MG/DL (<150)
== END ==
LOC: M WUC 08:25
PROVIDERS: ATTEND Nurse Practitioner Family
DX: Z00.00 Encounter for general adult medical examination without abnormal findings (principal)

== ENCOUNTER → 2023-04-17 | Outpatient (CLI) | payer OTHER ==
[~2023-04-17] MED LIST changes: +LORA-1041 PO; -LORA-674 PO
== END ==
LOC: M RAD 07:55
PROVIDERS: ATTEND Nurse Practitioner Family
DX: Z12.2 Encounter for screening for malignant neoplasm of respiratory organs (principal); F17.210 Nicotine dependence, cigarettes, uncomplicated; R91.8 Other nonspecific abnormal finding of lung field

== ENCOUNTER → 2023-08-13 | Outpatient (REF) | payer OTHER | LOC: M WUC 09:38 | PROVIDERS: ATTEND Physician Assistant | DX: R19.7 Diarrhea, unspecified (principal) ==

== ENCOUNTER 2023-09-29 11:01 | Day surgery (SDC) | payer OTHER ==
[~2023-09-29] VITALS: Ht 172.7 cm; Wt 63.2 kg
[2023-09-29] MEDS: NS 1,000 ML IV ONE (06:00)
[~2023-09-29 11:01] MED LIST changes: +LOPE1CAP5 PO
[2023-09-29] MEDS ORDERED: propofoL 200 MG/20 ML VIAL As Ordered ONE (11:31)
[2023-09-29] MEDS ORDERED: dexmedeTOMIDine (4MCG/ML)200MCG/50ML BTL (PRECEDEX) As Ordered ONE (11:35)
[2023-09-29 12:32] VITALS: TEMP 97.1
[2023-09-29 12:47] VITALS: BP 113/67; O2SAT 96
== END 2023-09-29 12:54 | disposition home or self-care (01) ==
LOC: M OPP 11:01
PROVIDERS: ATTEND Internal Medicine Gastroenterology
DX: Z12.11 Encounter for screening for malignant neoplasm of colon (principal); K57.30 Diverticulosis of large intestine without perforation or abscess without bleeding; K64.0 First degree hemorrhoids; K31.89 Other diseases of stomach and duodenum; K90.0 Celiac disease; Z80.0 Family history of malignant neoplasm of digestive organs; G47.30 Sleep apnea, unspecified; Z79.899 Other long term (current) drug therapy; F17.210 Nicotine dependence, cigarettes, uncomplicated; Z86.14 Personal history of Methicillin resistant Staphylococcus aureus infection

== ENCOUNTER → 2024-01-05 | Outpatient (CLI) | payer OTHER ==
[2024-01-05 11:59] LABS: ALBUMIN 3.2 G/DL (3.2-5.2); ALKALINE PHOSPHATASE 104 U/L (46-116); ALT/SGPT 48 U/L (7.0-40); AST/SGOT 60 U/L (<34); BILIRUBIN,TOTAL 0.2 MG/DL (0.3-1.2); BLOOD UREA NITROGEN 19 MG/DL (9-23); CALCIUM LEVEL 8.8 MG/DL (8.5-10.1); CARBON DIOXIDE LEVEL 27 MMOL/L (20-31); CHLORIDE LEVEL 108 MMOL/L (98-107); CHOLESTEROL LEVEL 120 MG/DL (<200); CHOLESTEROL RISK RATIO 5.24 (<5); CREATININE FOR GFR 0.93 MG/DL (0.70-1.30); GLOMERULAR FILTRATION RATE > 60.0 (>56); GLUCOSE, FASTING 90 MG/DL (60-100); HDL CHOLESTEROL 22.9 MG/DL (>40); LDL CHOLESTEROL 80.9 MG/DL (<100); NON-HDL-C 97.1 MG/DL; POTASSIUM SERUM 4.1 MMOL/L (3.5-5.1); SODIUM LEVEL 140 MMOL/L (136-145); TOTAL PROTEIN 6.8 G/DL (5.7-8.2); TRIGLYCERIDES LEVEL 81 MG/DL (<150)
== END ==
LOC: M PLALAB 07:07
PROVIDERS: ATTEND Nurse Practitioner Family
DX: K21.9 Gastro-esophageal reflux disease without esophagitis (principal)

== ENCOUNTER → 2024-04-20 | Outpatient (CLI) | payer OTHER ==
[~2024-04-20] MED LIST changes: +GABA-1490 PO; -GABA600T4 PO
== END ==
LOC: M RAD 08:30
PROVIDERS: ATTEND Nurse Practitioner Family
DX: Z87.891 Personal history of nicotine dependence (principal)

== ENCOUNTER → 2024-07-15 | Outpatient (REF) | payer OTHER ==
[~2024-07-15] MED LIST changes: -CYCL5TAB PO; +CYCL5TAB4 PO; -TADA2.5T PO; +TADA2.5T20 PO
[2024-07-15 12:45] LABS: APPEARANCE, URINE CLEAR (CLEAR); BACTERIA, URINE AUTO NEGATIVE (NEGATIVE); BILIRUBIN, URINE AUTO NEGATIVE (NEGATIVE); BLOOD, URINE BLOOD 1+ (NEGATIVE); COLOR, URINE STRAW (YELLOW); GLUCOSE, URINE (UA) AUTO NEGATIVE (NEGATIVE); KETONE, URINE AUTO NEGATIVE (NEGATIVE); LEUKOCYTE ESTERASE, URINE AUTO NEGATIVE (NEGATIVE); NITRITE, URINE AUTO NEGATIVE (NEGATIVE); PROTEIN, URINE AUTO NEGATIVE (NEGATIVE); RBC, URINE AUTO 0 /HPF (0-3); SPECIFIC GRAVITY URINE AUTO 1.003 (1.002-1.035); SQUAMOUS EPITHELIAL CELL UR AU 0 /HPF (0-6); UROBILINOGEN, URINE AUTO 0.2 mg/dL (0.0-2.0); WBC, URINE AUTO 0 /HPF (0-3)
== END ==
LOC: M SMT 12:10
PROVIDERS: ATTEND Nurse Practitioner Family
DX: N45.3 Epididymo-orchitis (principal)

== ENCOUNTER → 2024-08-13 | Outpatient (CLI) | payer MEDICAID, OTHER, SELFPAY | LOC: M RAD 12:18 | PROVIDERS: ATTEND Student in an Organized Health Care Education/Training Program | DX: M47.896 Other spondylosis, lumbar region (principal) ==

== ENCOUNTER → 2024-10-26 | Outpatient (CLI) | payer OTHER ==
[2024-10-26 11:14] LABS: ALBUMIN 3.3 G/DL (3.2-5.2); ALKALINE PHOSPHATASE 102 U/L (40-129); ALT/SGPT 40 U/L (7.0-40); AST/SGOT 42 U/L (<34); BILIRUBIN,DIRECT < 0.1 MG/DL (<0.4); BILIRUBIN,TOTAL < 0.2 MG/DL (0.3-1.2); TOTAL PROTEIN 7.3 G/DL (5.7-8.2)
== END ==
LOC: M PLALAB 07:07 → M LAB 07:07
PROVIDERS: ATTEND Podiatrist Foot & Ankle Surgery
DX: B35.1 Tinea unguium (principal)

== ENCOUNTER → 2025-04-21 | Outpatient (CLI) | payer OTHER | LOC: M RAD 13:59 | PROVIDERS: ATTEND Nurse Practitioner Family | DX: Z12.2 Encounter for screening for malignant neoplasm of respiratory organs (principal); R91.1 Solitary pulmonary nodule; F17.210 Nicotine dependence, cigarettes, uncomplicated ==